=== PATIENT | female | born 1960 | race African-American/Black ===

== ENCOUNTER 2019-05-25 08:25 | Emergency (ER) | payer MEDICARE, MEDICAID ==
[~2019-05-25] VITALS: Ht 154.9 cm; Wt 72.0 kg
[2019-05-25] MEDS ORDERED: KETOROLAC 30MG/ML VIAL IM ONE (08:45)
[2019-05-25 10:36] VITALS: BP 115/69
== END 2019-05-25 10:40 | disposition home or self-care (01) ==
LOC: ER 08:25
DX: M25.562 Pain in left knee (principal)
CPT/HCPCS: 99283; J1885

== ENCOUNTER 2021-08-14 12:03 | Emergency (ER) | payer MEDICARE, MEDICAID ==
[~2021-08-14] VITALS: Ht 152.4 cm; Wt 75.0 kg
[2021-08-14] MEDS ORDERED: CYCL5TAB MT (12:44)
[2021-08-14] MEDS ORDERED: IBUP-2029 MT (12:44)
[2021-08-14] MEDS ORDERED: KETOROLAC 60MG/2ML VIAL IM ONE (12:45)
[2021-08-14 12:53] VITALS: BP 121/81
== END 2021-08-14 13:28 | disposition home or self-care (01) ==
LOC: ER 12:03
DX: M54.9 Dorsalgia, unspecified (principal)
CPT/HCPCS: 96372; 99283; J1885